=== PATIENT | male | born 1990 | race Caucasian/White ===

== ENCOUNTER 2020-08-12 17:58 | Emergency (ER) | payer OTHER ==
[~2020-08-12] VITALS: Ht 175.3 cm; Wt 81.6 kg
[2020-08-12 18:05] VITALS: BP 136/65
[2020-08-12] MEDS ORDERED: CEPH500T PO (18:21)
[2020-08-12] MEDS ORDERED: SULF1TAB48 PO (18:21)
[2020-08-12] MEDS ORDERED: IBUP-1955 PO (18:21)
--- NOTE | 2020-08-12 18:40 | NUR ---
Patient discharged to home in stable condition. Written and verbal after care instructions given. Patient verbalizes understanding of instruction. Pt ambulatory with a steady gait
== END 2020-08-12 18:51 | disposition home or self-care (01) ==
LOC: ER 18:07
DX: L73.9 Follicular disorder, unspecified (principal); Z79.899 Other long term (current) drug therapy

== ENCOUNTER 2020-08-29 15:43 | Emergency (ER) | payer OTHER ==
[~2020-08-29] VITALS: Ht 172.7 cm; Wt 83.9 kg
[~2020-08-29 15:43] MED LIST: CEPH500T PO; IBUP-1955 PO; SULF1TAB48 PO
--- NOTE | 2020-08-29 16:00 | NUR ---
BIB SELF C/O BUMP ON THE R LEG FOR 2 WEEKS. DENIES PAIN. WILL CONTINUE TO MONITOR THE PATIENT.
[2020-08-29] MEDS ORDERED: MUPI22OI2 TP (16:02)
[2020-08-29 16:05] VITALS: BP 129/77
--- NOTE | 2020-08-29 16:07 | NUR ---
Patient discharged to home in stable condition. Written and verbal after care instructions given. Patient verbalizes understanding of instruction. The patient left ER in stable condition.
== END 2020-08-29 16:08 | disposition home or self-care (01) ==
LOC: ER 15:54
DX: L73.9 Follicular disorder, unspecified (principal); Z79.899 Other long term (current) drug therapy

== ENCOUNTER 2020-10-03 21:02 | Emergency (ER) | payer OTHER ==
[~2020-10-03 21:02] MED LIST changes: +MUPI22OI2 TP
--- NOTE | 2020-10-03 21:07 | NUR ---
called for triage, no answer.
--- NOTE | 2020-10-03 21:10 | NUR ---
called for triage, no answer.
--- NOTE | 2020-10-03 21:14 | NUR ---
called for triage, no answer.
--- NOTE | 2020-10-03 21:19 | NUR ---
called for triage, no answer.
--- NOTE | 2020-10-03 21:38 | NUR ---
called for triage, no answer.
[2020-10-04] MEDS ORDERED: SILV20CR13 TP (10:18)
[2020-10-04] MEDS ORDERED: CEPH500T PO (10:18)
== END 2020-10-03 22:16 | disposition home or self-care (01) ==
LOC: ER 21:07
DX: Z53.21 Procedure and treatment not carried out due to patient leaving prior to being seen by health care provider (principal)

== ENCOUNTER 2020-10-04 09:48 | Emergency (ER) | payer OTHER ==
[~2020-10-04] VITALS: Ht 172.7 cm; Wt 81.6 kg
[2020-10-04 09:50] VITALS: BP 117/74
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
[2020-10-04] MEDS ORDERED: SILVER SULFADIAZINE CREAM 25 GM TUBE ONE (10:00)
[2020-10-04] MEDS: SILVER SULFADIAZINE 50 GM JAR TP STA (10:09)
[2020-10-04] MEDS ORDERED: SILV20CR13 TP (10:18)
[2020-10-04] MEDS ORDERED: CEPH500T PO (10:18)
--- NOTE | 2020-10-04 10:25 | NUR ---
Patient discharged to home in stable condition. Written and verbal after care instructions given. Patient verbalizes understanding of instruction.
== END 2020-10-04 10:27 | disposition home or self-care (01) ==
LOC: ER 09:48
DX: L55.0 Sunburn of first degree (principal)

== ENCOUNTER 2020-11-10 12:43 | Emergency (ER) | payer OTHER ==
[~2020-11-10] VITALS: Ht 172.7 cm; Wt 77.1 kg
[~2020-11-10 12:43] MED LIST changes: +SILV20CR13 TP
[2020-11-10 12:51] VITALS: BP 108/63
--- NOTE | 2020-11-10 13:02 | NUR ---
Patient discharged to home in stable condition. Written and verbal after care instructions given. Patient verbalizes understanding of instruction.
== END 2020-11-10 13:02 | disposition home or self-care (01) ==
LOC: ER 12:49
DX: L84 Corns and callosities (principal)

== ENCOUNTER 2020-12-31 08:33 | Emergency (ER) | payer OTHER ==
[~2020-12-31] VITALS: Ht 172.7 cm; Wt 79.4 kg
--- NOTE | 2020-12-31 08:43 | NUR ---
CALLED IN ED WAITING ROOM. NO RESPONSE.
[2020-12-31 08:54] VITALS: BP 112/72
[2020-12-31] MEDS ORDERED: IBUPROFEN 600 MG TABLET PO ONE (09:00)
[2020-12-31] MEDS ORDERED: IBUPROFEN 600 MG TABLET ONE (09:06)
--- NOTE | 2020-12-31 09:12 | NUR ---
Patient discharged to home in stable condition. Written and verbal after care instructions given. Patient verbalizes understanding of instruction.
== END 2020-12-31 09:12 | disposition home or self-care (01) ==
LOC: ER 08:36
DX: S90.424A Blister (nonthermal), right lesser toe(s), initial encounter (principal); Z79.899 Other long term (current) drug therapy; X58.XXXA Exposure to other specified factors, initial encounter; Y93.89 Activity, other specified; Y92.89 Other specified places as the place of occurrence of the external cause; Y99.8 Other external cause status

== ENCOUNTER 2021-01-17 13:38 | Emergency (ER) | payer OTHER ==
[~2021-01-17] VITALS: Ht 172.7 cm; Wt 77.1 kg
--- NOTE | 2021-01-17 13:41 | NUR ---
TO ER BED 3, C/O ABDOMINAL DISTENSION X 2 WEEKS, DENIES ANY PAIN, AAOX4, BREATHING EVEN AND UNLABORED. MD AT BEDSIDE FOR EVAL
--- NOTE | 2021-01-17 14:06 | NUR ---
INFORMED MD THAT PT DOES NOT WANT ANY BLOOD WORKS AND FLUIDS
[2021-01-17] MEDS ORDERED: MAG HYDROX/AL HYDROX/SIMETH 30 ML UDC ONE (14:10)
[2021-01-17] MEDS ORDERED: LIDOCAINE VISCOUS 2% UD 15 ML UDC ONE (14:10)
[2021-01-17 14:20] VITALS: BP 116/68
[2021-01-17] MEDS ORDERED: LIDOCAINE VISCOUS 2% UD 15 ML UDC MM ONE (14:30)
[2021-01-17] MEDS ORDERED: MAG HYDROX/AL HYDROX/SIMETH 30 ML UDC PO ONE (14:30)
== END 2021-01-17 14:20 | disposition home or self-care (01) ==
LOC: ER 13:45
DX: K29.70 Gastritis, unspecified, without bleeding (principal); Z79.899 Other long term (current) drug therapy
CPT/HCPCS: J7030

== ENCOUNTER 2021-03-17 13:51 | Emergency (ER) | payer OTHER ==
[~2021-03-17] VITALS: Ht 172.7 cm; Wt 77.1 kg
--- NOTE | 2021-03-17 14:15 | NUR ---
Patient came in to the er c/o R ankle pain x 3 days 5/10 pain scale. On room air. Kept comfortable, will continue to monitor accordingly.
[2021-03-17] MEDS ORDERED: KETOROLAC TROMETHAMINE INJ 30 MG/ML VIAL ONE (15:01)
[2021-03-17] MEDS ORDERED: IBUP-1957 PO (15:07)
[2021-03-17] MEDS: KETOROLAC TROMETHAMINE INJ 30 MG/ML VIAL IM ONE (15:12)
[2021-03-17 15:52] VITALS: BP 115/71
--- NOTE | 2021-03-17 15:52 | NUR ---
Patient discharged to home in stable condition. Written and verbal after care instructions given. Patient verbalizes understanding of instruction.
== END 2021-03-17 15:52 | disposition home or self-care (01) ==
LOC: ER 13:52
DX: M25.571 Pain in right ankle and joints of right foot (principal)
CPT/HCPCS: 73610-TC; 73630-TC; J1885

== ENCOUNTER 2021-04-12 13:27 | Emergency (ER) | payer OTHER ==
[~2021-04-12] VITALS: Ht 172.7 cm; Wt 72.6 kg
[2021-04-12 13:27] VITALS: BP 130/79
[~2021-04-12 13:27] MED LIST changes: +IBUP-1957 PO
--- NOTE | 2021-04-12 14:42 | NUR ---
Patient discharged to home in stable condition. Written and verbal after care instructions given. Patient verbalizes understanding of instruction.
== END 2021-04-12 14:44 | disposition home or self-care (01) ==
LOC: ER 13:37
DX: S90.822A Blister (nonthermal), left foot, initial encounter (principal); R59.0 Localized enlarged lymph nodes; X58.XXXA Exposure to other specified factors, initial encounter; Y93.89 Activity, other specified; Y92.89 Other specified places as the place of occurrence of the external cause; Y99.8 Other external cause status

== ENCOUNTER 2021-08-22 12:05 | Emergency (ER) | payer OTHER ==
[~2021-08-22] VITALS: Ht 172.7 cm; Wt 74.8 kg
--- NOTE | 2021-08-22 12:07 | NUR ---
called for triage not in the waiting room.
[2021-08-22 12:31] VITALS: BP 115/67
--- NOTE | 2021-08-22 12:44 | NUR ---
SEEN BY DR. YANG nd evaluted pt coopratve and understood
[2021-08-22] MEDS ORDERED: IBUP-1955 PO (12:50)
[2021-08-22] MEDS ORDERED: CLOT15CR27 TP (12:50)
--- NOTE | 2021-08-22 12:59 | NUR ---
d/c instraction given to pt fully and verblized understood
[2021-08-31] MEDS ORDERED: DIPH-530 PO ×2 (13:35→15:03)
== END 2021-08-22 12:59 | disposition home or self-care (01) ==
LOC: ER 12:21
DX: M79.601 Pain in right arm (principal); R21 Rash and other nonspecific skin eruption; R00.0 Tachycardia, unspecified; Z79.1 Long term (current) use of non-steroidal anti-inflammatories (NSAID); Z79.899 Other long term (current) drug therapy

== ENCOUNTER → 2021-08-31 | Emergency (ER) | payer OTHER ==
[~2021-08-31] VITALS: Ht 172.7 cm; Wt 74.8 kg
[~2021-08-31] MED LIST changes: +CLOT15CR27 TP; +DIPH-530 PO
[2021-08-31 13:29] VITALS: BP 136/81
--- NOTE | 2021-08-31 13:29 | NUR ---
"insect bite" left scapular area
--- NOTE | 2021-08-31 13:41 | NUR ---
Patient discharged to home in stable condition. Written and verbal after care instructions given. Patient verbalizes understanding of instruction.
== END | disposition home or self-care (01) ==
LOC: ER 12:55
DX: S40.262A Insect bite (nonvenomous) of left shoulder, initial encounter (principal); Z79.899 Other long term (current) drug therapy; W57.XXXA Bitten or stung by nonvenomous insect and other nonvenomous arthropods, initial encounter; Y93.89 Activity, other specified; Y92.89 Other specified places as the place of occurrence of the external cause; Y99.8 Other external cause status

== ENCOUNTER 2021-09-04 15:56 | Emergency (ER) | payer OTHER ==
[~2021-09-04] VITALS: Ht 172.7 cm; Wt 79.4 kg
[2021-09-04 15:59] VITALS: BP 115/73
[2021-09-04] MEDS ORDERED: DICL100G34 TP (16:59)
== END 2021-09-04 17:25 | disposition home or self-care (01) ==
LOC: ER 16:09
DX: M79.601 Pain in right arm (principal); G89.29 Other chronic pain; F99 Mental disorder, not otherwise specified; F12.90 Cannabis use, unspecified, uncomplicated; Z79.899 Other long term (current) drug therapy

== ENCOUNTER 2021-09-22 10:47 | Emergency (ER) | payer OTHER ==
[~2021-09-22] VITALS: Ht 172.7 cm; Wt 77.1 kg
[~2021-09-22 10:47] MED LIST changes: +DICL100G34 TP
[2021-09-22 10:50] VITALS: BP 105/69
--- NOTE | 2021-09-22 10:50 | NUR ---
BIB SELF C/O R ELBOW PAIN X 1 WEEK.
[2021-09-22] MEDS ORDERED: IBUP-1955 PO (11:27)
--- NOTE | 2021-09-22 12:14 | NUR ---
Patient discharged to home in stable condition. Written and verbal after care instructions given. Patient verbalizes understanding of instruction.
== END 2021-09-22 12:14 | disposition home or self-care (01) ==
LOC: ER 10:47
DX: M25.521 Pain in right elbow (principal); Z79.899 Other long term (current) drug therapy

== ENCOUNTER 2021-11-16 14:42 | Emergency (ER) | payer OTHER ==
[~2021-11-16] VITALS: Ht 172.7 cm; Wt 72.6 kg
[~2021-11-16 14:42] MED LIST changes: -DICL100G34 TP
[2021-11-16 15:34] VITALS: BP 131/86
--- NOTE | 2021-11-16 15:34 | NUR ---
BILAT FOOT PAIN, BLISTERS X 3 DAYS
--- NOTE | 2021-11-16 16:00 | NUR ---
Patient discharged to home in stable condition. Written and verbal after care instructions given. Patient verbalizes understanding of instruction.
== END 2021-11-16 16:00 | disposition home or self-care (01) ==
LOC: ER 14:44
DX: S90.822A Blister (nonthermal), left foot, initial encounter (principal); S90.821A Blister (nonthermal), right foot, initial encounter; Z79.899 Other long term (current) drug therapy; X58.XXXA Exposure to other specified factors, initial encounter; Y93.89 Activity, other specified; Y92.89 Other specified places as the place of occurrence of the external cause; Y99.8 Other external cause status

== ENCOUNTER 2021-11-17 23:29 | Emergency (ER) | payer OTHER ==
[~2021-11-17] VITALS: Ht 172.7 cm; Wt 72.6 kg
[2021-11-17 23:48] VITALS: BP 113/67
--- NOTE | 2021-11-18 00:02 | NUR ---
Patient discharged to home in stable condition. Written and verbal after care instructions given. Patient verbalizes understanding of instruction.
== END 2021-11-18 00:03 | disposition home or self-care (01) ==
LOC: ER 23:30
DX: M79.601 Pain in right arm (principal); Z79.899 Other long term (current) drug therapy

== ENCOUNTER 2022-01-19 18:30 | Emergency (ER) | payer OTHER ==
[~2022-01-19] VITALS: Ht 162.6 cm; Wt 59.0 kg
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
--- NOTE | 2022-01-19 19:12 | NUR ---
PT TAKEN TO CT VIA [facility]
[2022-01-19] MEDS ORDERED: LIDOCAINE VISCOUS 2% UD 15 ML UDC ONE (19:27)
[2022-01-19] MEDS ORDERED: LIDOCAINE 1% INJ 50 ML MDV IJ ONE (19:29)
[2022-01-19] MEDS ORDERED: LIDOCAINE HCL/PF 1% 30 ML VIAL TP ONE (19:30)
[2022-01-19] MEDS ORDERED: ACETAMINOPHEN 325 MG TABLET PO ONE (20:30)
[2022-01-19] MEDS ORDERED: ACETAMINOPHEN ES 500 MG TABLET ONE (20:33)
[2022-01-19 20:40] VITALS: BP 126/67
== END 2022-01-19 20:40 | disposition home or self-care (01) ==
LOC: ER 18:32
DX: S01.111A Laceration without foreign body of right eyelid and periocular area, initial encounter (principal); F10.129 Alcohol abuse with intoxication, unspecified; Z79.899 Other long term (current) drug therapy; Y04.2XXA Assault by strike against or bumped into by another person, initial encounter; Y93.89 Activity, other specified; Y92.89 Other specified places as the place of occurrence of the external cause; Y99.8 Other external cause status; Y90.9 Presence of alcohol in blood, level not specified
CPT/HCPCS: 70450-TC; 70486-TC; 71045-TC; J3490

== ENCOUNTER 2022-01-30 12:36 | Emergency (ER) | payer OTHER ==
[~2022-01-30] VITALS: Ht 172.7 cm; Wt 72.6 kg
[2022-01-30 12:57] VITALS: BP 135/76
[2022-01-30] MEDS ORDERED: DEXT15DR6 EACHEYE (14:29)
== END 2022-01-30 14:41 | disposition home or self-care (01) ==
LOC: ER 12:41
DX: Z48.00 Encounter for change or removal of nonsurgical wound dressing (principal); H11.31 Conjunctival hemorrhage, right eye; Z79.899 Other long term (current) drug therapy

== ENCOUNTER 2022-04-13 10:54 | Emergency (ER) | payer OTHER ==
[~2022-04-13] VITALS: Ht 172.7 cm; Wt 77.1 kg
[~2022-04-13 10:54] MED LIST changes: +DEXT15DR6 EACHEYE
[2022-04-13 11:10] VITALS: BP 125/75
--- NOTE | 2022-04-13 11:18 | NUR ---
covid swab collected and sent to lab
--- NOTE | 2022-04-13 12:44 | NUR ---
MEDICALLY CLEARED. D/C TO [facility] IN STABLE CONDITION.
== END 2022-04-13 12:45 ==
LOC: ER 10:58
DX: R05.9 Cough, unspecified (principal); Z20.822 Contact with and (suspected) exposure to COVID-19
CPT/HCPCS: 99283; 87426; C9803

== ENCOUNTER 2022-12-24 12:25 | Emergency (ER) | payer OTHER ==
[~2022-12-24] VITALS: Ht 172.7 cm; Wt 77.1 kg
[2022-12-24 12:40] VITALS: BP 146/86; TEMP 98.1
[2022-12-24] MEDS ORDERED: IBUP-1955 PO (13:00)
[2022-12-24 13:18] VITALS: O2SAT 100
== END 2022-12-24 13:19 | disposition home or self-care (01) ==
LOC: ER 12:29
DX: S93.504A Unspecified sprain of right lesser toe(s), initial encounter (principal); X58.XXXA Exposure to other specified factors, initial encounter; Y93.89 Activity, other specified; Y92.89 Other specified places as the place of occurrence of the external cause; Y99.8 Other external cause status

== ENCOUNTER 2023-03-04 10:56 | Emergency (ER) | payer OTHER ==
[~2023-03-04] VITALS: Ht 172.7 cm; Wt 77.1 kg
[2023-03-04 11:15] VITALS: BP 136/79; TEMP 98.1; O2SAT 100
== END 2023-03-04 12:35 | disposition home or self-care (01) ==
LOC: ER 11:00
DX: F12.90 Cannabis use, unspecified, uncomplicated (principal)

== ENCOUNTER 2023-04-07 14:24 | Emergency (ER) | payer OTHER ==
[~2023-04-07] VITALS: Ht 172.7 cm; Wt 68.0 kg
[2023-04-07] MEDS ORDERED: ACETAMINOPHEN ES 500 MG TABLET ONE ×2 (14:58)
[2023-04-07] MEDS ORDERED: ACETAMINOPHEN 325 MG TABLET PO ONE (15:00)
[2023-04-07 15:04] VITALS: BP 118/70; TEMP 98; O2SAT 100
== END 2023-04-07 15:05 ==
LOC: ER 14:34
DX: R51.9 Headache, unspecified (principal); Z79.899 Other long term (current) drug therapy; Y04.8XXA Assault by other bodily force, initial encounter; Y93.89 Activity, other specified; Y92.89 Other specified places as the place of occurrence of the external cause; Y99.8 Other external cause status

== ENCOUNTER 2024-07-13 12:46 | Emergency (ER) | payer OTHER ==
[~2024-07-13] VITALS: Ht 172.7 cm; Wt 95.3 kg
[2024-07-13 13:31] LABS: BASOPHILS % (AUTO) 0.5 % (0.0-2.0); EOSINOPHILS # (AUTO) 0.2 K/uL (0.0-0.7); EOSINOPHILS % (AUTO) 3.4 % (0.0-6.0); HEMATOCRIT 40 % (39-51); HEMOGLOBIN 13.3 g/dL (13.5-17.5); LYMPHOCYTES # (AUTO) 1.6 K/uL (0.8-4.8); LYMPHOCYTES % (AUTO) 31.6 % (20.0-44.0); MEAN CORPUSCULAR HEMOGLOBIN 29 PG (26.0-33.0); MEAN CORPUSCULAR HGB CONC 34 g/dl (31.0-36.0); MEAN CORPUSCULAR VOLUME 86 fL (80-96); MONOCYTES # (AUTO) 0.4 K/uL (0.1-1.30); MONOCYTES % (AUTO) 8.5 % (2.0-12.0); NEUTROPHILS # (AUTO) 2.9 K/uL (1.8-8.9); PLATELET COUNT (AUTO) 165 K/uL (150-450); RED BLOOD CELL COUNT(AUTO) 4.63 MIL/uL (4.5-6.0); WHITE BLOOD COUNT (AUTO) 5.2 K/uL (4.3-11.0)
[2024-07-13 13:40] LABS: CALCIUM, SERUM 8.6 mg/dL (8.5-10.1); POTASSIUM 3.7 mmol/L (3.5-5.1)
[2024-07-13 13:52] LABS: ALBUMIN 3.5 g/dL (3.4-5.0); BILIRUBIN,DIRECT 0.1 mg/dL (0.0-0.2); BILIRUBIN,TOTAL 0.4 mg/dL (0.2-1.0); TOTAL PROTEIN, SERUM 6.9 g/dL (6.4-8.2)
[2024-07-13 15:18] LABS: AMPHETAMINE, URINE POSITIVE (NEGATIVE); BARBITURATE, URINE NEGATIVE (NEGATIVE); BENZODIAZEPINE, URINE NEGATIVE (NEGATIVE); CANNABINOID, URINE POSITIVE (NEGATIVE); COCCAINE, URINE NEGATIVE (NEGATIVE); OPIATE, URINE NEGATIVE (NEGATIVE); PHENCYCLIDINE SCREEN,URINE NEGATIVE (NEGATIVE)
[2024-07-13 15:28] VITALS: BP 110/78; TEMP 97.9; O2SAT 97
== END 2024-07-13 15:29 | disposition home or self-care (01) ==
LOC: ER 12:49
DX: R60.0 Localized edema (principal); F15.10 Other stimulant abuse, uncomplicated; Z79.1 Long term (current) use of non-steroidal anti-inflammatories (NSAID)
CPT/HCPCS: 36415; 71045-TC; 80048-TC; 80076-TC; 83880; 85025-TC; 93970-TC; G0480

== ENCOUNTER 2024-09-18 18:16 | Emergency (ER) | payer OTHER ==
[~2024-09-18] VITALS: Ht 172.7 cm; Wt 83.9 kg
[2024-09-18 19:07] VITALS: BP 140/72; TEMP 98.7; O2SAT 99
== END 2024-09-18 20:29 | disposition home or self-care (01) ==
LOC: ER 18:19
DX: F41.9 Anxiety disorder, unspecified (principal); Z76.0 Encounter for issue of repeat prescription; Z79.1 Long term (current) use of non-steroidal anti-inflammatories (NSAID); Z79.899 Other long term (current) drug therapy